=== PATIENT | male | born 1980 | race Hispanic/Latino ===

== ENCOUNTER 2022-09-07 06:25 | Observation (INO) | payer OTHER, SELFPAY ==
[2022-09-07] MEDS ORDERED: KETOROLAC 30 MG/ML INJ ONE (06:56)
[2022-09-07] MEDS ORDERED: NA CHLORIDE 0.9% 500 ML ONE (06:56)
[2022-09-07 07:11] LABS: Absolute Lymphocytes (CBC) 1.2 K/uL (0.7-4.9); Lymphocytes % 11.6 % (15.3-44.8); MCV 85.8 fL (80-100); MPV 9.1 fL (7.6-11.3); RBC Red Blood Cell Count 5.01 M/uL (4.33-5.43)
[2022-09-07 07:22] LABS: Albumin 3.9 g/dL (3.4-5.0); Bilirubin Total 0.3 mg/dL (0.2-1.0); Protein, Total 7.4 g/dL (6.4-8.2)
--- NOTE | 2022-09-07 07:49 | RAD REPORT ---
EXAM DESCRIPTION: CT - Stone Protocol - 09/07/2022 7:22 am CLINICAL HISTORY: Abdominal pain. COMPARISON: None. TECHNIQUE: Computed axial tomography of the abdomen pelvis was obtained without oral or IV contrast. Lack of IV and oral contrast limits evaluation of solid organs, appendix, bowel, and vessels. Terry l reformatted images were obtained and reviewed. All CT scans are performed using dose optimization technique as appropriate and may include automated exposure control or mA/KV adjustment according to patient size. FINDINGS: Bilateral renal calculi. 9 millimeter calculus proximal right ureter. Moderate right hydro nephrosis. No left hydronephrosis without With fatty liver. The spleen, adrenals and pancreas appear grossly normal. There is no evidence of diverticulitis. The appendix appears normal Small umbilical hernia IMPRESSION: 9 millimeter calculus proximal right ureter resulting in moderate right hydronephrosis
[2022-09-07] MEDS ORDERED: MORPHINE 4 MG/ML SYR ONE ×2 (09:08→13:45)
[2022-09-07] MEDS ORDERED: TAMSULOSIN 0.4 MG SR CAP ONE (09:09)
[2022-09-07] MEDS ORDERED: MAGNESIUM SULFATE 1 gm IVPB 1 GM/100 ML BAG IV ONE (09:09)
[2022-09-07 10:32] LABS: Urine Blood 3+ (Negative); Urine Glucose Trace (Negative); Urine Protein Negative (Negative); Urine Specific Gravity 1.025 (1.005-1.030); Urine pH 6.5 (5.0-7.0)
--- NOTE | 2022-09-07 11:36 | EDPHYS ---
Physician Documentation [facility] Name: Durga Gastelum Age: 41 yrs Sex: Male : 1980 Arrival Date: 09/07/2022 Time: 06:26 Bed 17 Private MD: ED Physician Javier Saunders HPI: 09/07 06:51 This 41 yrs old Male presents to ER via Unassigned with complaints of Back kdr Pain. 06:52 Patient complains of right flank pain that began about 3 AM this morning. He was kdr sleeping at the time. He has not had pain like this before. He has had some nausea but no vomiting. He is otherwise healthy. Onset: The symptoms/episode began/occurred suddenly. Severity of symptoms: At their worst the symptoms were severe incapacitating just prior to arrival, in the emergency department the symptoms are unchanged. The patient has not experienced similar symptoms in the past. The patient has not recently seen a physician. Historical: - Allergies: 06:52 No Known Allergies; aa9 - Home Meds: 06:52 None [Active]; aa9 - PMHx: 06:52 None; aa9 - PSHx: 06:52 None; aa9 - Immunization history:: Client reports receiving the 2nd dose of the Covid vaccine. - Social history:: Smoking status: Patient denies any tobacco usage or history of. ROS: 06:52 Constitutional: Negative for fever, chills, and weight loss, Eyes: Negative for injury, kdr pain, redness, and discharge, ENT: Negative for injury, pain, and discharge, Neck: Negative for injury, pain, and swelling, Cardiovascular: Negative for chest pain, palpitations, and edema, Respiratory: Negative for shortness of breath, cough, wheezing, and pleuritic chest pain, Back: Negative for injury and pain, : Negative for injury, bleeding, discharge, and swelling, MS/Extremity: Negative for injury and deformity, Skin: Negative for injury, rash, and discoloration, Neuro: Negative for headache, weakness, numbness, tingling, and seizure activity. Psych: Negative for depression, anxiety, suicide ideation, homicidal ideation, and hallucinations, Allergy/Immunology: Negative for hives, rash, and allergies, Endocrine: Negative for neck swelling, polydipsia, polyuria, polyphagia, and marked weight changes, Hematologic/Lymphatic: Negative for swollen nodes, abnormal bleeding, and unusual bruising. 06:52 Abdomen/GI: Positive for abdominal pain, nausea, Negative for vomiting, constipation, abdominal cramps, abdominal distension, black/tarry stool, rectal pain, rectal bleeding, bowel incontinence. Exam: 06:52 Constitutional: This is a well developed, well nourished patient who is awake, alert, kdr and in no acute distress. Head/Face: Normocephalic, atraumatic. Eyes: Pupils equal round and reactive to light, extra-ocular motions intact. Lids and lashes normal. Conjunctiva and sclera are non-icteric and not injected. Cornea within normal limits. Periorbital areas with no swelling, redness, or edema. Neck: Trachea midline, no thyromegaly or masses palpated, and no cervical lymphadenopathy. Supple, full range of motion without nuchal rigidity, or vertebral point tenderness. No Meningismus. Chest/axilla: Normal chest wall appearance and motion. Nontender with no deformity. No lesions are appreciated. Cardiovascular: Regular rate and rhythm with a normal S1 and S2. No gallops, murmurs, or rubs. Normal PMI, no JVD. No pulse deficits. Respiratory: Lungs have equal breath sounds bilaterally, clear to auscultation and percussion. No rales, rhonchi or wheezes noted. No increased work of breathing, no retractions or nasal flaring. Skin: Warm, dry with normal turgor. Normal color with no rashes, no lesions, and no evidence of cellulitis. MS/ Extremity: Pulses equal, no cyanosis. Neurovascular intact. Full, normal range of motion. Neuro: Awake and alert, GCS 15, oriented to person, place, time, and situation. Cranial nerves II-XII grossly intact. Motor strength 5/5 in all extremities. Sensory grossly intact. Cerebellar exam normal. Normal gait. Psych: Awake, alert, with orientation to person, place and time. Behavior, mood, and affect are within normal limits. 06:52 Abdomen/GI: Soft, non-tender, with normal bowel sounds. No distension or tympany. No guarding or rebound. No evidence of tenderness throughout. 06:52 Back: pain, that is moderate, that is severe, of the right mid back and right low back, ROM is normal, normal spinal alignment noted, CVA tenderness, that is moderate, is noted on the right. Vital Signs: 06:51 BP 155 / 92; Pulse 69; Resp 18 S; Pulse Ox 100% on R/A; Weight 81.65 kg (R); Height 5 aa9 ft. 5 in. (165.10 cm) (R); Pain 10/10; 07:12 BP 146 / 84; Pulse 70; Resp 16 S; Pulse Ox 97% on R/A; kc6 09:26 BP 137 / 80; Pulse 71; Resp 18 S; Temp 98.2(O); Pulse Ox 99% on R/A; kc6 10:19 BP 128 / 85; Pulse 64; Resp 18 S; Pulse Ox 96% on R/A; kc6 11:08 BP 134 / 89; Pulse 68; Resp 16 S; Pulse Ox 99% on R/A; kc6 12:24 BP 127 / 84; Pulse 74; Resp 18 S; Pulse Ox 99% on R/A; Pain 0/10; kc6 14:28 BP 126 / 79; Pulse 69; Resp 17 S; Pulse Ox 96% on R/A; kc6 15:59 BP 105 / 67; Pulse 100; Resp 18 S; Pulse Ox 97% on R/A; kc6 06:51 Body Mass Index 29.95 (81.65 kg, 165.10 cm) aa9 MDM: 06:52 Data reviewed: vital signs, nurses notes, lab test result(s), radiologic studies. kdr Counseling: I had a detailed discussion with the patient and/or guardian regarding: the historical points, exam findings, and any diagnostic results supporting the discharge/admit diagnosis, lab results, radiology results. 07:04 Patient medically screened. rn 11:32 Differential Diagnosis kidney stone, obstruction, hydro, UTI. Response to treatment: rn There is no appreciated change of the patient's symptoms at this time, and as a result, I will admit patient. Admission orders: after a detailed discussion of the patient's condition and case, the admit orders are written by me. ED course: Pt still with pain, morphine only helps temporarily, will consult with Dr. Johnson and admit.. 11:35 ED course: Called Dr. Johnson, no answer, will try again. . rn 09/07 06:50 Order name: CBC with Diff; Complete Time: 07:22 kdr 09/07 06:50 Order name: CMP; Complete Time: 07:22 kdr 09/07 10:32 Order name: Urine Dipstick-Ancillary; Complete Time: 11:30 EDMS 09/07 12:13 Order name: SARS RAPID jl7 09/07 13:49 Order name: Basic Metabolic Panel EDMS 09/07 13:49 Order name: Basic Metabolic Panel EDMS 09/07 13:49 Order name: CBC with Automated Diff EDMS 09/07 13:49 Order name: CBC with Automated Diff EDMS 09/07 13:49 Order name: Magnesium EDMS 09/07 13:49 Order name: Magnesium EDMS 09/07 13:49 Order name: Phosphorus EDMS 09/07 13:49 Order name: Phosphorus EDMS 09/07 13:49 Order name: Protime (+INR) EDMS 09/07 13:49 Order name: Protime (+INR) EDMS 09/07 06:50 Order name: IV Saline Lock; Complete Time: 06:54 kdr 09/07 06:50 Order name: Labs collected and sent; Complete Time: 06:54 kdr 09/07 06:50 Order name: Urine Dipstick-Ancillary (obtain specimen); Complete Time: 10:31 kdr 09/07 06:50 Order name: CT Stone Protocol; Complete Time: 07:53 kdr 09/07 13:49 Order name: CONS Physician Consult EDMS 09/07 13:49 Order name: NPO EDMS 09/07 13:49 Order name: Regular EDMS Administered Medications: 07:03 Drug: Ketorolac 15 mg Route: IVP; Site: right antecubital; kd3 08:03 Follow up: Response: No adverse reaction; Pain is decreased; RASS: Alert and Calm (0) kc6 07:03 Drug: NS 0.9% 500 ml Route: IV; Rate: bolus; Site: right antecubital; kd3 08:04 Follow up: Response: No adverse reaction; IV Status: Completed infusion; IV Intake: kc6 500ml 09:24 Drug: morphine 4 mg Route: IVP; Infused Over: 4 mins; Site: right antecubital; kc6 10:32 Follow up: Response: No adverse reaction; Pain is decreased; RASS: Alert and Calm (0) kc6 09:24 Drug: Magnesium Sulfate 1 grams Route: IVPB; Infused Over: 1 hrs; Site: right kc6 antecubital; 10:31 Follow up: Response: No adverse reaction; IV Status: Completed infusion; IV Intake: kc6 100ml 09:25 Drug: Flomax (tamsulosin) 0.4 mg Route: PO; kc6 10:32 Follow up: Response: No adverse reaction kc6 13:50 Drug: morphine 4 mg Route: IVP; Infused Over: 4 mins; Site: right antecubital; kc6 14:29 Follow up: Response: No adverse reaction; Pain is decreased; RASS: Alert and Calm (0) kc6 Disposition Summary: 09/07/22 11:36 Hospitalization Ordered Hospitalization Status: Observation rn Provider: Telly Esquivel rn Location: Telemetry/MedSur (observation) rn Condition: Stable rn Problem: new rn Symptoms: are unchanged rn Bed/Room Type: Standard rn Room Assignment: [facility](09/07/22 15:20) Diagnosis - Hydronephrosis with renal and ureteral calculous obstruction rn - Intractable pain criminal attorney Instructions: - Discharge Summary Sheet em1 Forms: - Medication Reconciliation Form rn - SBAR form rn - Family Work Release em1 Signatures: Dispatcher [employer] Kacey Mar RN RN dw Barney Latif MD MD kdr Nieto, Roman, MD MD rn Doucette, Kyli, RN TARIK kd3 Radha Khoury RN RN aa9 Ludivina Antonio, RN RN kc6 Corrections: (The following items were deleted from the chart) 15:20 11:36 rn [email or web address]
--- NOTE | 2022-09-07 11:36 | ER ---
Nurse's Notes [facility] Name: Durga Gastelum Age: 41 yrs Sex: Male : 1980 Arrival Date: 09/07/2022 Time: 06:26 Bed 17 Private MD: Diagnosis: Hydronephrosis with renal and ureteral calculous obstruction;Intractable pain Presentation: 09/07 06:51 Chief complaint: Patient states: I have right lower back pain since I woke up, i did aa9 vomit once form the pain, I have never had this pain before. Coronavirus screen: Vaccine status: Patient reports receiving the 2nd dose of the covid vaccine. Ebola Screen: No symptoms or risks identified at this time. Initial Sepsis Screen: Does the patient meet any 2 criteria? No. Patient's initial sepsis screen is negative. Does the patient have a suspected source of infection? No. Patient's initial sepsis screen is negative. Risk Assessment: Do you want to hurt yourself or someone else? Patient reports no desire to harm self or others. Onset of symptoms was September 07, 2022. 06:51 Method Of Arrival: Ambulatory aa9 06:51 Acuity: JOVANNY 3 aa9 Triage Assessment: 06:52 General: Appears distressed, uncomfortable, Behavior is cooperative, crying. Pain: aa9 Complains of pain in back and posterior aspect of right lateral abdomen Pain currently is 10 out of 10 on a pain scale. Noted to be crying, grimacing, guarding, moaning, Also complains of no other associated symptoms. Neuro: Level of Consciousness is awake, alert, obeys commands, Oriented to person, place, time, situation. Cardiovascular: Denies chest pain, shortness of breath, Patient's skin is warm and dry. Rhythm is regular. Respiratory: Airway is patent Respiratory effort is even, unlabored. GI: Abdomen is flat, Patient currently denies diarrhea. : No signs and/or symptoms were reported regarding the genitourinary system. Denies burning with urination. Derm: No signs and/or symptoms reported regarding the dermatologic system. Historical: - Allergies: 06:52 No Known Allergies; aa9 - Home Meds: 06:52 None [Active]; aa9 - PMHx: 06:52 None; aa9 - PSHx: 06:52 None; aa9 - Immunization history:: Client reports receiving the 2nd dose of the Covid vaccine. - Social history:: Smoking status: Patient denies any tobacco usage or history of. Screenin:54 Abuse screen: Denies threats or abuse. Denies injuries from another. Nutritional aa9 screening: No deficits noted. Tuberculosis screening: No symptoms or risk factors identified. Fall Risk None identified. Assessment: 07:30 Reassessment: Patient appears in no apparent distress at this time. Patient and/or jd3 family updated on plan of care and expected duration. Pain level reassessed. Patient is alert, oriented x 3, equal unlabored respirations, skin warm/dry/pink. resting in bed with eyes closed. family at bedside. 07:30 General: Appears in no apparent distress. comfortable, Behavior is calm, cooperative, jd3 appropriate for age. Pain: Complains of pain in right low back Quality of pain is described as sharp. Neuro: Yates Agitation-Sedation Scale (RASS): 0 - Alert and Calm Level of Consciousness is awake, alert, obeys commands, Oriented to person, place, time, situation. Cardiovascular: Capillary refill < 3 seconds Patient's skin is warm and dry. Respiratory: Airway is patent Respiratory effort is even, unlabored, Respiratory pattern is regular, symmetrical, Denies cough, shortness of breath. GI: Reports lower abdominal pain. : No signs and/or symptoms were reported regarding the genitourinary system. EENT: No signs and/or symptoms were reported regarding the EENT system. Derm: Skin is intact, Skin is dry, Skin is normal, Skin temperature is warm. Musculoskeletal: No signs and/or symptoms reported regarding the musculoskeletal system. 08:30 Reassessment: No changes from previously documented assessment. Patient and/or family jd3 updated on plan of care and expected duration. Pain level reassessed. Patient is alert, oriented x 3, equal unlabored respirations, skin warm/dry/pink. 09:25 Reassessment: Patient appears in no apparent distress at this time. No changes from kc6 previously documented assessment. Patient and/or family updated on plan of care and expected duration. Pain level reassessed. Patient is alert, oriented x 3, equal unlabored respirations, skin warm/dry/pink. 10:18 Reassessment: Patient appears in no apparent distress at this time. No changes from kc6 previously documented assessment. Patient and/or family updated on plan of care and expected duration. Pain level reassessed. Patient is alert, oriented x 3, equal unlabored respirations, skin warm/dry/pink. 11:09 Reassessment: Patient appears in no apparent distress at this time. No changes from kc6 previously documented assessment. Patient and/or family updated on plan of care and expected duration. Pain level reassessed. Patient is alert, oriented x 3, equal unlabored respirations, skin warm/dry/pink. 12:24 Reassessment: Patient appears in no apparent distress at this time. No changes from kc6 previously documented assessment. Patient and/or family updated on plan of care and expected duration. Pain level reassessed. Patient is alert, oriented x 3, equal unlabored respirations, skin warm/dry/pink. 13:24 Reassessment: Patient appears in no apparent distress at this time. No changes from kc6 previously documented assessment. Patient and/or family updated on plan of care and expected duration. Pain level reassessed. Patient is alert, oriented x 3, equal unlabored respirations, skin warm/dry/pink. 14:24 Reassessment: Patient appears in no apparent distress at this time. No changes from kc6 previously documented assessment. Patient and/or family updated on plan of care and expected duration. Pain level reassessed. Patient is alert, oriented x 3, equal unlabored respirations, skin warm/dry/pink. 15:24 Reassessment: Patient appears in no apparent distress at this time. No changes from kc6 previously documented assessment. Patient and/or family updated on plan of care and expected duration. Pain level reassessed. Patient is alert, oriented x 3, equal unlabored respirations, skin warm/dry/pink. Vital Signs: 06:51 BP 155 / 92; Pulse 69; Resp 18 S; Pulse Ox 100% on R/A; Weight 81.65 kg (R); Height 5 aa9 ft. 5 in. (165.10 cm) (R); Pain 10/10; 07:12 BP 146 / 84; Pulse 70; Resp 16 S; Pulse Ox 97% on R/A; kc6 09:26 BP 137 / 80; Pulse 71; Resp 18 S; Temp 98.2(O); Pulse Ox 99% on R/A; kc6 10:19 BP 128 / 85; Pulse 64; Resp 18 S; Pulse Ox 96% on R/A; kc6 11:08 BP 134 / 89; Pulse 68; Resp 16 S; Pulse Ox 99% on R/A; kc6 12:24 BP 127 / 84; Pulse 74; Resp 18 S; Pulse Ox 99% on R/A; Pain 0/10; kc6 14:28 BP 126 / 79; Pulse 69; Resp 17 S; Pulse Ox 96% on R/A; kc6 15:59 BP 105 / 67; Pulse 100; Resp 18 S; Pulse Ox 97% on R/A; kc6 06:51 Body Mass Index 29.95 (81.65 kg, 165.10 cm) aa9 ED Course: 06:26 Patient arrived in ED. ja2 06:42 Barney Latif MD is Attending Physician. kdr 06:52 Triage completed. aa9 06:53 Fanny Nuno RN is Primary Nurse. kd3 06:54 Arm band placed on. aa9 07:04 Attending Physician role handed off by Barney Latif MD rn 07:04 Javier Saunders MD is Attending Physician. rn 07:23 CT Stone Protocol In Process Unspecified. EDMS 09:20 Patient has correct armband on for positive identification. Bed in low position. Call jd3 light in reach. Side rails up X 1. Pulse ox on. NIBP on. 11:35 Telly Esquivel MD is Hospitalizing Provider. rn 12:22 SARS RAPID Sent. kc6 16:00 No provider procedures requiring assistance completed. Patient admitted, IV remains in kc6 place. Administered Medications: 07:03 Drug: Ketorolac 15 mg Route: IVP; Site: right antecubital; kd3 08:03 Follow up: Response: No adverse reaction; Pain is decreased; RASS: Alert and Calm (0) kc6 07:03 Drug: NS 0.9% 500 ml Route: IV; Rate: bolus; Site: right antecubital; kd3 08:04 Follow up: Response: No adverse reaction; IV Status: Completed infusion; IV Intake: kc6 500ml 09:24 Drug: morphine 4 mg Route: IVP; Infused Over: 4 mins; Site: right antecubital; kc6 10:32 Follow up: Response: No adverse reaction; Pain is decreased; RASS: Alert and Calm (0) kc6 09:24 Drug: Magnesium Sulfate 1 grams Route: IVPB; Infused Over: 1 hrs; Site: right kc6 antecubital; 10:31 Follow up: Response: No adverse reaction; IV Status: Completed infusion; IV Intake: kc6 100ml 09:25 Drug: Flomax (tamsulosin) 0.4 mg Route: PO; kc6 10:32 Follow up: Response: No adverse reaction kc6 13:50 Drug: morphine 4 mg Route: IVP; Infused Over: 4 mins; Site: right antecubital; kc6 14:29 Follow up: Response: No adverse reaction; Pain is decreased; RASS: Alert and Calm (0) kc6 Medication: 07:30 VIS not applicable for this client. jd3 Intake: 08:04 IV: 500ml; Total: 500ml. kc6 10:31 IV: 100ml; Total: 600ml. kc6 Outcome: 11:36 Decision to Hospitalize by Provider. rn 16:00 Admitted to Med/surg accompanied by tech, via wheelchair, room 208, with chart, Report kc6 called to Cora Kilgore RN 16:00 Condition: stable 16:00 Instructed on the need for admit. 16:14 Patient left the ED. jd3 Signatures: Dispatcher [employer] Barney Alba MD MD kdr Nieto, Roman, MD MD rn Davies, Jonathon, RN RN jd3 Kelsey Mckeon Kyli, RN RN kd3 Radha Khoury RN RN Ludivina Schilling RN RN kc6
[2022-09-07 12:42] LABS: SARS-CoV-2 Antigen Rapid Res Negative (Negative)
--- NOTE | 2022-09-07 13:46 | P.HP ---
Certification for Inpatient Patient admitted to: Observation With expected LOS: <2 Midnights Patient will require the following post-hospital care: None Practitioner: I am a practitioner with admitting privileges, knowledge of patient current condition, hospital course, and medical plan of care. Services: Services provided to patient in accordance with Admission requirements found in Title 42 Section 412.3 of the Code of Federal Regulations Patient History Date of Service: 09/07/22 Reason for admission: Hydronephrosis History of Present Illness: Mr. Durga Gastelum is Jamaican-speaking only. The following history was obtained with the assistance of [employer] certified Jamaican-Turkmen sales project engineer, Ms. Constance Larsen, (ID# [id number]). Mr. Durga Gastelum is a pleasant 41 year old male who has no reported past medical history who presents to the [facility] Emergency Department for right flank pain. He reports that, around 03:00 AM this morning, he awoke with rightsided flank pain. He states that the pain is constant and has been progressively worsening. He describes the pain as sharp and grades it a 7-8/10 in severity. He states that the pain is worse with any type of movement. He denies any alleviating factors. He denies any radiation of his pain. He states that his pain has been associated with dysuria. He has not tried taking any medication at home for his symptoms. On review of systems, he denies any fevers, chills, headaches, dizziness, syncope, weakness, chest pain, palpitations, shortness of breath, wh eezing, cough, abdominal pain, nausea/vomiting, diarrhea, constipation, hematochezia, melena, hematuria, myalgia, or any other symptoms. He presented to the Emergency Department for further evaluation. Upon presentation, his vital signs were stable. His laboratory studies were notable for a glucose of 197. His urinalysis was notable for 3+ blood. CT abdomen/pelvis revealed, "9 millimeter calculus proximal right ureter resulting in moderate right hydronephrosis." In the Emergency Department, he was given ketorolac, morphine, magnesium sulfate, and 500 mL of normal saline. He was admitted to the General Internal Medicine service for further evaluation. Allergies No Known Allergies Allergy (Unverified 09/07/22 14:03) Home medications list reviewed: Yes Home Medications: NK [No Home Meds] 09/07/22 - Past Medical/Surgical History Past Medical History: Patient denies medical history Past Surgical History: Patient denies surgical history - Family History Family History: Reviewed- Non-Contributory - Social History Smoking Status: Never smoker Alcohol use: No CD- Drugs: No Review of Systems General: Unremarkable Eyes: Unremarkable ENT: Unremarkable Respiratory: Unremarkable Cardiovascular: Unremarkable Gastrointestinal: Unremarkable Genitourinary: Dysuria Musculoskeletal: Back Pain (right flank) Integumentary: Unremarkable Neurological: Unremarkable Lymphatics: Unremarkable Physical Examination - Vital Signs Temperature: 98.2 F Blood Pressure: 127/84 Pulse: 74 Respirations: 18 Pulse Ox (%): 99 - Physical Exam General: Alert, Oriented x3, Mild distress HEENT: Atraumatic, PERRLA, Mucous membr. moist/pink, EOMI, Sclerae nonicteric Neck: Supple Respiratory: Clear to auscultation bilaterally, Normal air movement Cardiovascular: No edema, Regular rate/rhythm, Normal S1 S2, No gallops, No rubs, No murmurs Capillary refill: <2 Seconds Gastrointestinal: Normal bowel sounds, Soft and benign, Non-distended, No tenderness, No rebound, No guarding Musculoskeletal: Other (right CVA tenderness. No left CVA tenderness.) Integumentary: No rashes Neurological: Normal speech, Cranial nerves 3-12 intact, Normal affect - Studies Laboratory Data (last 24 hrs) 09/07/22 06:58: Sodium 140, Potassium 4.0, BUN 17, Creatinine 1.18, Glucose 197 H, Total Bilirubin 0.3, AST 30, ALT 72, Alkaline Phosphatase 93 09/07/22 06:58: WBC 10.70, Hgb 14.9, Hct 43.0, Plt Count 193 Assessment and Plan - Plan # Moderate Right Hydronephrosis secondary to Proximal Right Ureter Calculus (9 mm) - Consulted Urology and spoke with Dr. Johnson - recommendations appreciated - Recommended NPO past midnight for possible cystoscopy and stone removal tomorrow - Urinalysis = 3+ blood - CT abdomen/pelvis = "9 millimeter calculus proximal right ureter resulting in moderate right hydronephrosis" - Started tamsulosin - PRN acetaminophen, ketorolac, morphine for pain - Strain all urine Telly Esquivel M.D. Discharge Plan: Home Plan to discharge in: 24 Hours - Advance Directives Does patient have a Living Will: No Does patient have a Durable POA for Healthcare: No - Code Status/Comfort Care Code Status Assessed: Yes Code Status: Full Code
[2022-09-07 17:14] VITALS: BMI 27.6
[2022-09-07] MEDS ORDERED: MORPHINE 2 MG/ML SYR IV PRN (17:17)
[2022-09-07] MEDS ORDERED: KETOROLAC 30 MG/ML INJ IV PRN (17:17)
[2022-09-07] MEDS ORDERED: ACETAMINOPHEN 325 MG TABLET PO PRN (17:17)
[2022-09-07] MEDS ORDERED: TAMSULOSIN 0.4 MG SR CAP PO SCH (21:00)
[2022-09-08 05:47] LABS: Absolute Lymphocytes (CBC) 2.1 K/uL (0.7-4.9); MCV 86.1 fL (80-100); RBC Red Blood Cell Count 4.64 M/uL (4.33-5.43)
[2022-09-08 05:58] LABS: Magnesium 2.1 mg/dL (1.8-2.4); Phosphorus 3.2 mg/dL (2.5-4.9); Potassium 3.8 mmol/L (3.5-5.1)
[2022-09-08 07:47] LABS: Protime INR 1.05
[2022-09-08] MEDS ORDERED: Ringers Lactate 1,000 ML IV SCH (08:00)
[2022-09-08] MEDS ORDERED: CEFTRIAXONE 1000 MG/VIAL ONE (11:10)
[2022-09-08] MEDS ORDERED: MIDAZOLAM HCL 2 MG/2 ML INJ ONE (11:41)
[2022-09-08] MEDS ORDERED: FENTANYL CITR 100 MCG/2 ML ONE (11:41)
[2022-09-08] MEDS ORDERED: ONDANSETRON 4 MG/2 ML VIAL ONE (11:41)
[2022-09-08] MEDS ORDERED: propofoL 200 MG/20 ML VIAL IV ONE (11:41)
[2022-09-08] MEDS ORDERED: LIDOCAINE 1% MPF 5 ML VIAL ONE (11:41)
[2022-09-08] MEDS ORDERED: ROCURONIUM 50 MG/5 ML VIAL IV ONE (11:41)
[2022-09-08] MEDS ORDERED: NEOSTIGMINE 1 MG/ML -5 ML ONE (12:44)
[2022-09-08] MEDS ORDERED: GLYCOPYRROLATE 0.2 MG/ML SYR ONE (12:44)
--- NOTE | 2022-09-08 13:05 | RAD REPORT ---
EXAM DESCRIPTION: RAD - Urethrocystogrphy Retrograde - 09/08/2022 12:59 pm CLINICAL HISTORY: RIGHT STENT COMPARISON: No comparisons FINDINGS: Total fluoro time: 0.11 minutes
[2022-09-08] MEDS ORDERED: MEPERIDINE HCL 25 MG/ML SYR ONE (13:31)
[2022-09-08 13:34] VITALS: O2SAT 97
[2022-09-08] MEDS ORDERED: CODEINE 30MG/APAP 300MG TAB PO PRN (13:37)
[2022-09-08] MEDS ORDERED: PHENAZOPYRIDINE 100MG TAB PO ONE (14:00)
--- NOTE | 2022-09-08 15:20 | CON ---
Reason For Consultation: Obstructive ureterolithiasis. History Of Present Illness: Mr. Gastelum is a 41-year-old Wolof-speaking gentleman, who presented via the emergency department with complaints of right flank pain. The pain was severe in nature, but it was not associated with any nausea or vomiting, and he had no fever or chills. In addition to the pain, he notes that this morning he was having a degree of dysuria. The pain began early yesterday morning and was constant and progressively worsening. As of my visit with him this morning, the pain had significantly improved. Past Medical History: Negative. Past Surgical History: None. Allergies: NO KNOWN DRUG ALLERGIES. Physical Examination: The patient is well-appearing and in no acute distress, he was alert, awake, oriented x3. There was no dyspnea or sign of respiratory distress or use of secondary muscles to breathe. There was no cervical or supraclavicular adenopathy or thyromegaly noted. His abdomen was soft, minimally tender in the right mid quadrant. Genitalia was circumcised with an orthotopic meatus, patent without discharge. No glandar lesions were noted. The testes were bilaterally descended without mass and nontender. The scrotum was normal. He was lying in a stretcher, but able to move easily with requests for the examination. Laboratory Analysis: Creatinine 1.18 and urinalysis 3+ heme with no nitrites or leukocyte esterase. Review of the CT of the abdomen and pelvis performed revealed right-sided hydronephrosis associated with an 8 to 9 mm proximal ureteral calculus. No other pathologic findings of note were observed in the abdomen or pelvis. Assessment And Recommendations: Mr. Gastelum is a 41-year-old gentleman with no significant past medical or surgical history, who presents as a first-time stone former with an 8 to 9 mm proximal right ureterolithiasis causing flank pain and hydronephrosis. -I counseled the patient with use of a sales utility representative for 8 minutes and 32 seconds explaining that he had less than a 10% likelihood of successful spontaneous passage of the stone. I explained the potential that the stone could be impacted, which could result in difficulty in placement of the ureteral stent, which was recommended today. I did discuss the potential for performing definitive ureteroscopic management with laser lithotripsy, but I explained that that may not be possible today. I further explained that if a stent is successfully placed, but laser lithotripsy is not performed, he will need to return for definitive management of the stone at minimum within 6 months to prevent complications from prolonged stenting. I explained that the stent is a foreign body that must be removed within 6 months maximum. Risks of the cystoscopy and stenting were discussed to include injury to urethra/stricture or infection. The potential need for percutaneous nephrostomy tube placement was also discussed to occur in about 5% of cases depending on how impacted the stone is. Other risks of ureteral stricture were also discussed as well as the risk of infection/sepsis if ureteroscopy was performed. The patient consented to the procedure accordingly and will be planned today for a cystoscopy and right ureteral stent placement with possible ureteroscopy with laser lithotripsy. KINZA/MAKENZIE Voice ID: [id number] Report ID: [id number] TAMMY
[2022-09-08 17:34] VITALS: BP 112/62; TEMP 98.4
--- NOTE | 2022-09-08 18:17 | OP ---
Surgeon: RIRI SCHOFIELD Preoperative Diagnoses: 1.Right obstructive ureterolithiasis. 2.Right flank pain. 3.Right hydronephrosis. Postoperative Diagnoses: 1.Right obstructive ureterolithiasis. 2.Right flank pain. 3.Right hydronephrosis. 4.Urethral stricture disease. Principal Procedures: 1.Cystoscopy. 2.Urethral dilation using sounds. 3.Right retrograde pyelography. 4.Right ureteroscopy with laser lithotripsy. 5.Right ureteral stent placement. Indication For Procedure: Mr. Gastelum is a 41-year-old gentleman, first-time stone former, who prese nted via the Emergency Department with right flank pain, found to be secondary to an 8-9 mm proximal ureteral obstructing calculus. I saw him and counseled him on the potential for surgical interventio n to include ureteroscopy with laser lithotripsy, but recommended at minimum a ureteral stent be plac ed given the less than 10% likelihood of successful spontaneous passage. He consented and agreed. Procedure In Detail: The patient was consented in the preoperative holding area before being transfe rred to operative suite where general anesthesia was induced. He had been given ceftriaxone 1 g IV a ntimicrobial prophylaxis about 1 hour and 15 minutes prior to incision. His genitalia were prepped u sing Hibiclens after he was placed in the lithotomy position, padded and secured to the table appropr iately. The case was begun using a 22-Egyptian rigid cystoscope to traverse the urethra until a bulbar urethral stricture was encountered that prohibited passage by the 22-Egyptian rigid scope. As a resul t, I employed urethral sounds to dilate all the way into his bladder from 22-Egyptian to 28-Egyptian succ essfully. I then was able to pass the 22-Egyptian cystoscope via the urethra all the way into his blad nica, which was decompressed of fluid and urine. I then visualized the trigone and the right ureteral orifice, which was then cannulated using the tip of a 5-Egyptian ureteral access catheter. A retrogra de pyelogram was then performed. Right retrograde pyelography: Using a 70:30 mixture of Omnipaque and saline, contrast was injected v ia the 5-Egyptian ureteral access catheter and did propagate up a mildly dilated ureter before encounte ring a radiopaque calculus in the proximal ureter just distal to the UPJ. The contrast was able to s urpass the calculus and enter a dilated renal pelvis. So I utilized a Sensor wire to navigate beyond the stone and coiled the wire within the upper pole of the kidney. Over this Sensor wire, I passed a dual-lumen catheter all the way into the proximal ureter just to the base of the stone and allow th e ureter to be dilated. I confirmed appropriate positioning of the ureteral access sheath by again i njecting contrast via the second lumen of the dual-lumen catheter. I then removed the dual-lumen cat heter and was able to navigate the semi-rigid ureteroscope via the urethra up the distal into the mid and proximal ureter until the stone was encountered. Then, utilizing a 200 nanometer laser fiber an d power setting of 0.6-0.8 joules and 12 hertz, I was able to quickly fragment the stone to dust just about the size of the laser fiber or about 200-400 nanometers maximum. I then surveyed beyond the p oint of stone impaction in the ureter to confirm all fragments had been successfully disrupted and we re smaller than a mm. I then retracted the ureteroscope and surveyed the entirety of the ureter from proximal down through the mid and distal ureter to ensure absence of injury or any significantly siz ed stones. When neither was noted, the scope was removed from his urinary system. I then back-loade d the cystoscope over the safety wire and passed a 6-Egyptian x 24 cm double-J right ureteral stent wit h a coil observed fluoroscopically within the renal pelvis and one cystoscopically formed in his blad nica. I then decompressed his bladder of fluid and urine and some stone dust. Attempts to take some of that stone dust and sent it for chemical analysis was performed. The patient was then taken out o f the lithotomy position, awakened from general anesthesia, transferred to a stretcher, and then hernandez sferred to the recovery room in good condition. Complications: None. Discharge Disposition: He should follow up in the Urology Clinic within 2-3 weeks for cystoscopy and stent removal. I counseled the patient extensively preoperatively on the fact that this is a foreig n body that requires removal within 6 months maximum to prevent complication or injury. Since he is a Divehi-speaking gentleman, this counseling was performed using the asl interpreter. This will be reinforced along with his discharge instructions and my office number will be provided. KINZA/MAKENZIE Voice ID: [id number] Report ID: [id number]
--- NOTE | 2022-09-08 18:55 | P.DS ---
Admission Date: 09/07/22 Discharge Date: 09/08/22 Discharge Condition: GOOD Reason for Admission: Hydronephrosis Consultations: 1. Urology Procedures: - 09/08/2022: - Cystoscopy. - Urethral dilation using sounds. - Right retrograde pyelography. - Right ureteroscopy with laser lithotripsy. - Right ureteral stent placement. Hospital Course: DIAGNOSES: # Moderate Right Hydronephrosis secondary to Proximal Right Ureter Calculus (9 mm) s/p Cystoscopy with Right Ureteral Stent Placement (09/08/2022) HOSPITAL COURSE: Mr. Durga Gastelum is Belizean-speaking only. The following history was obtained with the assistance of [employer] certified [place]an-Monegasque map compiler, Mr. Mccollum, (ID# [id number]). Mr. Durga Gastelum is a pleasant 41 year old male who has no reported past medical history who was admitted to the [facility] on 09/07/2022 for right flank pain. He was admitted to the Medicine service. His urinalysis revealed 3+ blood. CT abdomen/pelvis revealed, ""9 millimeter calculus proximal right ureter resulting in moderate right hydronephrosis." Urology was consulted and he was evaluated by Dr. Johnson. Today, Dr. Johnson performed a cystoscopy, right retrograde pyelography, right ureteroscopy with laser lithotripsy, and right ureteral stent placement. He was monitored post-operatively and did well. Dr. Johnson has cleared him for discharge with outpatient follow-up. On 09/08/2022, he was seen on rounds and deemed medically stable for discharge. He was discharged with instructions to schedule a follow-up appointment with Urology (Dr. Johnson) for stent removal in 2-[address] Johnson provided him a prescription for Tylenol # 3. He and his were given the opportunity to ask questions and reported no further questions. Furthermore, all questions were answered to the best of my ability. A copy of this discharge summary will be sent to the above providers to facilitate continuity of care. Today, I personally spent 20 minutes on his case, of which greater than 50% of the time was spent in patient education, counseling, and coordination of care as described above. - Physical Exam General: Alert, Oriented x3, Mild distress HEENT: Atraumatic, PERRLA, Mucous membr. moist/pink, EOMI, Sclerae nonicteric Neck: Supple Respiratory: Clear to auscultation bilaterally, Normal air movement Cardiovascular: No edema, Regular rate/rhythm, Normal S1 S2, No gallops, No rubs, No murmurs Capillary refill: <2 Seconds Gastrointestinal: Normal bowel sounds, Soft and benign, Non-distended, No tenderness, No rebound, No guarding Musculoskeletal: Other (right CVA tenderness. No left CVA tenderness.) Integumentary: No rashes Neurological: Normal speech, Cranial nerves 3-12 intact, Normal affect Vital Signs/Physical Exam: Temp Pulse Resp BP Pulse Ox 98.4 F 72 16 112/62 94 09/08/22 16:00 09/08/22 16:00 09/08/22 16:00 09/08/22 16:00 09/08/22 16:00 Laboratory Data at Discharge: WBC 9.90 K/uL (4.3-10.9) 09/08/22 05:28 Hgb 13.9 g/dL (13.6-17.9) 09/08/22 05:28 Hct 40.0 % (39.6-49.0) 09/08/22 05:28 Plt Count 163 K/uL (152-406) 09/08/22 05:28 PT 11.5 SECONDS (9.5-12.5) 09/08/22 07:21 INR 1.05 09/08/22 07:21 Sodium 137 mmol/L (136-145) 09/08/22 05:28 Potassium 3.8 mmol/L (3.5-5.1) 09/08/22 05:28 BUN 18 mg/dL (7-18) 09/08/22 05:28 Creatinine 1.21 mg/dL (0.55-1.3) 09/08/22 05:28 Glucose 172 mg/dL (74-106) H 09/08/22 05:28 Phosphorus 3.2 mg/dL (2.5-4.9) 09/08/22 05:28 Magnesium 2.1 mg/dL (1.8-2.4) 09/08/22 05:28 Total Bilirubin 0.3 mg/dL (0.2-1.0) 09/07/22 06:58 AST 30 U/L (15-37) 09/07/22 06:58 ALT 72 U/L (12-78) 09/07/22 06:58 Alkaline Phosphatase 93 U/L (45-117) 09/07/22 06:58 Home Medications: Acetaminophen [Tylenol*] 650 mg PO Q6H PRN tab 09/08/22 Codeine/APAP [Tylenol W/Codeine #3 tab] 1 tab PO Q6HP PRN #12 tab 09/08/22 New Medications: Codeine/APAP [Tylenol W/Codeine #3 tab] 1 tab PO Q6HP PRN #12 tab PRN Reason: Pain Physician Discharge Instructions: Diet:Low sodium Activity:Ad savi PHYSICIAN'S DISCHARGE INSTRUCTIONS I was able to blast and remove the kidney stone that was causing your pain today. You do still have a ureteral stent in place in your right kidney. It may cause some discomfort when you urinate in the back, and it may make you feel like you need to urinate frequently or have the urge to pee. This is common with the stent. You may also see some blood in the urine. This is normal. Notify me via my office if you develop any fever, frequent nausea or vomiting, pain that is not controlled by pain medications, or other unusual signs or symp toms. I have sent a prescription for Tylenol with codeine, which is a gentle narcotic for your pain. If you do not require the narcotic medication, you may take plain Tylenol, up to 1000 mg every 6 hours maximum, and alternate this every 4 hours with Motrin/ibuprofen, up to 800 mg every 8 hours maximum. Please take care to keep the total 24-hour daily dose of Tylenol/acetaminophen less than 4000 mg / 4 g from all sources if you are mixing the narcotic with plain Tylenol. Contact my office at [phone] to schedule follow-up to have the stent removed in about 2 to 4 weeks time. All the best! WBR Diet: Low sodium Activity: Ad savi Followup: Angel Johnson [ACTIVE - CAN ADMIT] - Time spent managing pt's care (in minutes): 20
== END 2022-09-08 18:56 | disposition home or self-care (01) ==
LOC: ER 06:25 → ERHOLD 13:50 → 2ND 16:00
PROVIDERS: ADMIT Internal Medicine; ATTEND Internal Medicine
PROC: 0TF68ZZ Fragmentation in Right Ureter, Via Natural or Artificial Opening Endoscopic (ICD-10-PCS; principal; 2022-09-07)
PROC: 0T768DZ Dilation of Right Ureter with Intraluminal Device, Via Natural or Artificial Opening Endoscopic (ICD-10-PCS; 2022-09-07)
DX: N13.2 Hydronephrosis with renal and ureteral calculous obstruction (principal); R10.9 Unspecified abdominal pain; Z20.822 Contact with and (suspected) exposure to COVID-19
CPT/HCPCS: 52356; 96365; 96361; 85025 ×2; 80048; 36415; 83735; 84100; 85610; 88300; 81003; 80053; 82360; 76377; 74176; 74450; 51610; 96375; 99285; 87811; J2704; J2001; J2250; J3010; J3475; J2175; J2710; J7120; J7040; J2405; G0378 ×3

== ENCOUNTER 2022-09-11 07:21 | Emergency (ER) | payer OTHER ==
[2022-09-11 08:02] LABS: Absolute Lymphocytes (CBC) 3.3 K/uL (0.7-4.9); Lymphocytes % 43.6 % (15.3-44.8); MCV 86.5 fL (80-100); RBC Red Blood Cell Count 4.97 M/uL (4.33-5.43)
[2022-09-11 08:14] LABS: Potassium 3.8 mmol/L (3.5-5.1)
[2022-09-11 09:15] LABS: Urine Blood 3+ (Negative); Urine Glucose Trace (Negative); Urine Protein 1+ (Negative); Urine Specific Gravity 1.025 (1.005-1.030); Urine pH 6.5 (5.0-7.0)
--- NOTE | 2022-09-11 11:34 | RAD REPORT ---
EXAM DESCRIPTION: RAD - Abdomen 1 View (KUB) - 09/11/2022 8:52 am CLINICAL HISTORY: R CVA tenderness Pain COMPARISON: Stone Protocol dated 09/07/2022 FINDINGS: The bowel gas pattern is non-obstructive. No evidence of free air or pneumatosis. There ar e 2 calcifications projecting inferior calyx right kidney. Tiny calcification also suspected inferior calyx left kidney. Right-sided double-J stent is in place in expected position.
--- NOTE | 2022-09-11 14:11 | ER ---
Nurse's Notes [facility] Name: Durga Gastelum Age: 41 yrs Sex: Male : 1980 Arrival Date: 09/11/2022 Time: 07:22 Bed 8 Private MD: Diagnosis: Ureteral stent pain, hematuria, renal stones Presentation: 09/11 07:25 Chief complaint: Patient states: R flank pain when using restroom since yesterday. Pt ss was admitted on Wednesday for 9 mm kidney stone, but states he had surgery to remove it. Coronavirus screen: Client denies travel out of the [place] in the last 14 days. Ebola Screen: Patient denies exposure to infectious person. Patient denies travel to an Ebola-affected area in the 21 days before illness onset. Initial Sepsis Screen: Does the patient meet any 2 criteria? No. Patient's initial sepsis screen is negative. Does the patient have a suspected source of infection? No. Patient's initial sepsis screen is negative. Risk Assessment: Do you want to hurt yourself or someone else? Patient reports no desire to harm self or others. Onset of symptoms was September 10, 2022. 07:25 Method Of Arrival: Ambulatory ss 07:25 Acuity: JOVANNY 3 ss Historical: - Allergies: 07:38 No Known Allergies; ss - PMHx: 07:38 Kidney stone; ss - Immunization history:: Adult Immunizations up to date. - Social history:: Smoking status: Patient denies any tobacco usage or history of. Screenin:30 Abuse screen: Denies threats or abuse. Nutritional screening: No deficits noted. vg1 Tuberculosis screening: No symptoms or risk factors identified. Fall Risk No fall in past 12 months (0 pts). No secondary diagnosis (0 pts). IV access (20 points). Ambulatory Aid- None/Bed Rest/Nurse Assist (0 pts). Gait- Normal/Bed Rest/Wheelchair (0 pts) Mental Status- Oriented to own ability (0 pts). Total Patel Fall Scale indicates No Risk (0-24 pts). Assessment: 07:30 General: Appears in no apparent distress. uncomfortable, Behavior is calm, cooperative. vg1 Pain: Complains of pain in Right flank and groin Pain currently is 0 out of 10 on a pain scale. at worst was 8 out of 10 on a pain scale. Pain began 11. Neuro: Level of Consciousness is awake, alert, obeys commands, Oriented to person, place, time, situation. Cardiovascular: Patient's skin is warm and dry. Respiratory: Airway is patent Respiratory effort is even, unlabored. GI: Abdomen is round non-distended, Patient currently denies nausea, vomiting. : Reports pain in right flank(s), with urination. EENT: No signs and/or symptoms were reported regarding the EENT system. Derm: Skin is intact, Skin is pink, warm \T\ dry. Musculoskeletal: Circulation, motion, and sensation intact. 08:30 Reassessment: Patient appears in no apparent distress at this time. Patient and/or vg1 family updated on plan of care and expected duration. Pain level reassessed. Patient is alert, oriented x 3, equal unlabored respirations, skin warm/dry/pink. Rates right flank pain 2/. 09:30 Reassessment: Patient appears in no apparent distress at this time. No changes from vg1 previously documented assessment. Patient is alert, oriented x 3, equal unlabored respirations, skin warm/dry/pink. 11:07 Reassessment: Patient appears in no apparent distress at this time. No changes from jd3 previously documented assessment. Patient and/or family updated on plan of care and expected duration. Pain level reassessed. Patient is alert, oriented x 3, equal unlabored respirations, skin warm/dry/pink. 12:56 Reassessment: Patient appears in no apparent distress at this time. Patient and/or vg1 family updated on plan of care and expected duration. Pain level reassessed. Patient is alert, oriented x 3, equal unlabored respirations, skin warm/dry/pink. 12:59 Reassessment: Currently waiting for Dr Johnson to call Dr Latif back about pt status. vg1 Pt updated on plan of care. Vital Signs: 07:25 BP 143 / 92; Pulse 77; Resp 16; Temp 98.5(O); Pulse Ox 97% on R/A; Weight 81.65 kg; ss Height 5 ft. 5 in. (165.10 cm); Pain 0/10; 08:30 BP 132 / 88; Pulse 72; Resp 15; Pulse Ox 96% on R/A; vg1 09:30 BP 124 / 88; Pulse 66; Resp 15; Pulse Ox 97% on R/A; vg1 11:07 BP 125 / 89; Pulse 67; Resp 16; Pulse Ox 100% on R/A; jd3 11:30 BP 139 / 89; Pulse 73; Resp 16; Pulse Ox 97% on R/A; vg1 12:55 BP 126 / 85; Pulse 82; Resp 14; Pulse Ox 96% on R/A; vg1 07:25 Body Mass Index 29.95 (81.65 kg, 165.10 cm) ED Course: 07:22 Patient arrived in ED. am2 07:28 Barney Latif MD is Attending Physician. kdr 07:29 Margarette Rosales, RN is Primary Nurse. vg1 07:30 Patient has correct armband on for positive identification. Placed in gown. Bed in low vg1 position. Call light in reach. Side rails up X 1. 07:30 No provider procedures requiring assistance completed. vg1 07:38 Triage completed. 07:38 Arm band placed on right wrist. 07:43 Initial lab(s) drawn, by de, sent to lab. Inserted saline lock: 20 gauge in left vg1 antecubital area, using aseptic technique. Blood collected. 08:54 Abdomen 1 View (KUB) XRAY In Process Unspecified. EDMS 14:47 IV discontinued, intact, bleeding controlled, No redness/swelling at site. Pressure vg1 dressing applied. Administered Medications: 14:44 Drug: Ditropan (oxybutynin) 5 mg Route: PO; vg1 14:47 Follow up: Response: Medication administered at discharge. vg1 Medication: 07:30 VIS not applicable for this client. vg1 Outcome: 14:10 Discharge ordered by . kdr 14:47 Discharged to home ambulatory. vg1 14:47 Condition: good 14:47 Discharge instructions given to patient, Instructed on discharge instructions, follow up and referral plans. medication usage, Demonstrated understanding of instructions, follow-up care, medications, Prescriptions given X 3. 14:47 Patient left the ED. vg1 Signatures: Dispatcher [employer] EDMS Barney Latif MD MD kdr Shazia Lares RN RN Kari Velasquez am2 Woodson, Slade, RN RN jd3 Bobby, Margarette, RN RN vg1
--- NOTE | 2022-09-11 14:11 | EDPHYS ---
Physician Documentation [facility] Name: Durga Gastelum Age: 41 yrs Sex: Male : 1980 Arrival Date: 09/11/2022 Time: 07:22 Bed 8 Private MD: ED Physician Barney Latif HPI: 09/11 08:31 This 41 yrs old Male presents to ER via Ambulatory with complaints of Flank kdr Pain, Pain With Urination. 08:32 Patient was admitted here last week for a kidney stone, 9 mm, and subsequently kdr discharged. Patient continues to have discomfort in the same region as when he was admitted previously. When he has the pain is a 7-8 out of 10. Currently without urinating, he has 0 pain. When he urinates he has pain. He denies fever, chills or nausea and vomiting. Patient otherwise has no complaints. He is nontoxic-appearing. Onset: The symptoms/episode began/occurred last week. Severity of symptoms: At their worst the symptoms were mild moderate just prior to arrival, in the emergency department the symptoms have improved. The patient has experienced a previous episode. The patient has not recently seen a physician. Historical: - Allergies: 07:38 No Known Allergies; ss - PMHx: 07:38 Kidney stone; ss - Immunization history:: Adult Immunizations up to date. - Social history:: Smoking status: Patient denies any tobacco usage or history of. ROS: 19:27 Constitutional: Negative for fever, chills, and weight loss, Eyes: Negative for injury, kdr pain, redness, and discharge, Neck: Negative for injury, pain, and swelling, Cardiovascular: Negative for chest pain, palpitations, and edema, Respiratory: Negative for shortness of breath, cough, wheezing, and pleuritic chest pain, Back: Negative for injury and pain, : Negative for injury, bleeding, discharge, and swelling, MS/Extremity: Negative for injury and deformity, Skin: Negative for injury, rash, and discoloration, Neuro: Negative for headache, weakness, numbness, tingling, and seizure activity. Psych: Negative for depression, anxiety, suicide ideation, homicidal ideation, and hallucinations, Allergy/Immunology: Negative for hives, rash, and allergies, Endocrine: Negative for neck swelling, polydipsia, polyuria, polyphagia, and marked weight changes, Hematologic/Lymphatic: Negative for swollen nodes, abnormal bleeding, and unusual bruising. 19:27 Abdomen/GI: Positive for abdominal pain, Negative for nausea, vomiting. Exam: 19:28 Constitutional: This is a well developed, well nourished patient who is awake, alert, kdr and in no acute distress. Head/Face: Normocephalic, atraumatic. Eyes: Pupils equal round and reactive to light, extra-ocular motions intact. Lids and lashes normal. Conjunctiva and sclera are non-icteric and not injected. Cornea within normal limits. Periorbital areas with no swelling, redness, or edema. Neck: Trachea midline, no thyromegaly or masses palpated, and no cervical lymphadenopathy. Supple, full range of motion without nuchal rigidity, or vertebral point tenderness. No Meningismus. Chest/axilla: Normal chest wall appearance and motion. Nontender with no deformity. No lesions are appreciated. Cardiovascular: Regular rate and rhythm with a normal S1 and S2. No gallops, murmurs, or rubs. Normal PMI, no JVD. No pulse deficits. Respiratory: Lungs have equal breath sounds bilaterally, clear to auscultation and percussion. No rales, rhonchi or wheezes noted. No increased work of breathing, no retractions or nasal flaring. Abdomen/GI: Soft, non-tender, with normal bowel sounds. No distension or tympany. No guarding or rebound. No evidence of tenderness throughout. Back: No spinal tenderness. No costovertebral tenderness. Full range of motion. Skin: Warm, dry with normal turgor. Normal color with no rashes, no lesions, and no evidence of cellulitis. MS/ Extremity: Pulses equal, no cyanosis. Neurovascular intact. Full, normal range of motion. Neuro: Awake and alert, GCS 15, oriented to person, place, time, and situation. Cranial nerves II-XII grossly intact. Motor strength 5/5 in all extremities. Sensory grossly intact. Cerebellar exam normal. Normal gait. Psych: Awake, alert, with orientation to person, place and time. Behavior, mood, and affect are within normal limits. Vital Signs: 07:25 BP 143 / 92; Pulse 77; Resp 16; Temp 98.5(O); Pulse Ox 97% on R/A; Weight 81.65 kg; ss Height 5 ft. 5 in. (165.10 cm); Pain 0/10; 08:30 BP 132 / 88; Pulse 72; Resp 15; Pulse Ox 96% on R/A; vg1 09:30 BP 124 / 88; Pulse 66; Resp 15; Pulse Ox 97% on R/A; vg1 11:07 BP 125 / 89; Pulse 67; Resp 16; Pulse Ox 100% on R/A; jd3 11:30 BP 139 / 89; Pulse 73; Resp 16; Pulse Ox 97% on R/A; vg1 12:55 BP 126 / 85; Pulse 82; Resp 14; Pulse Ox 96% on R/A; vg1 07:25 Body Mass Index 29.95 (81.65 kg, 165.10 cm) ss MDM: 14:10 Patient medically screened. kdr 14:14 Data reviewed: vital signs. ED course: Patient was stable in the ED, patient is only kdr having pain with urination. Patient appears to be having typical ureteral stent pain. I discussed the case with Dr. Johnson (delay in disposition due to awaiting his recovery return call). He suggested Ditropan and Tylenol/Toradol for pain relief. Patient was otherwise stable in the ED and happy with the care provided the plan for discharge and follow-up. 19:28 ED course: Patient was feeling much better after the interventions given. He stated kdr that he really only was having discomfort with urination. After speaking with Dr. Johnson, he indicated that the patient need to follow-up with him to get the stent removed as soon as possible or as scheduled. 09/11 07:29 Order name: Urine Culture kdr 09/11 07:39 Order name: CBC with Diff; Complete Time: 09:16 kdr 09/11 07:39 Order name: Abdomen 1 View (KUB) XRAY; Complete Time: 11:45 kdr 09/11 07:39 Order name: Chem 7; Complete Time: 09:16 kdr 09/11 09:15 Order name: Urine Dipstick-Ancillary; Complete Time: 09:16 EDMS 09/11 07:29 Order name: Urine Dipstick-Ancillary (obtain specimen); Complete Time: 09:16 kdr Administered Medications: 14:44 Drug: Ditropan (oxybutynin) 5 mg Route: PO; vg1 14:47 Follow up: Response: Medication administered at discharge. vg1 Disposition Summary: 09/11/22 14:10 Discharge Ordered Location: Home kdr Problem: new kdr Symptoms: have improved kdr Condition: Stable kdr Diagnosis - Ureteral stent pain, hematuria, renal stones kdr Followup: kdr - With: Private Physician - When: 2 - 3 days - Reason: If symptoms return, Further diagnostic work-up, Recheck today's complaints, Continuance of care, Re-evaluation by your physician Discharge Instructions: - Discharge Summary Sheet kdr - Kidney Stones, [id number] kdr - Ureteral Stent Implantation, Care After kdr Forms: - Medication Reconciliation Form kdr - Thank You Letter kdr - Antibiotic Education kdr Prescriptions: - Ditropan XL 5 mg Oral tablet extended release 24hr - take 2 tablet by ORAL route once daily; 12 tablet; Refills: 0, Product kdr Selection Permitted - Tramadol 50 mg Oral Tablet - take 1 tablet by ORAL route every 8 hours as needed; 12 tablet; Refills: 0, kdr Product Selection Permitted - Bactrim DS 800-160 mg Oral Tablet - take 1 tablet by ORAL route every 12 hours for 3 days; 6 tablet; Refills: 0, kdr Product Selection Permitted Signatures: Dispatcher [employer] EDMS Barney Latif MD MD kdr Shazia Lares RN RN ss Garcia, Victoria, RN RN vg1 Corrections: (The following items were deleted from the chart) 19:30 19:27 Constitutional: Negative for fever, chills, and weight loss, Eyes: Negative for kdr injury, pain, redness, and discharge, Neck: Negative for injury, pain, and swelling, Cardiovascular: Negative for chest pain, palpitations, and edema, Respiratory: Negative for shortness of breath, cough, wheezing, and pleuritic chest pain, Back: Negative for injury and pain, : Negative for injury, bleeding, discharge, and swelling, MS/Extremity: Negative for injury and deformity, Skin: Negative for injury, rash, and discoloration, Neuro: Negative for headache, weakness, numbness, tingling, and seizure activity. Psych: Negative for depression, anxiety, suicide ideation, homicidal ideation, and hallucinations, Allergy/Immunology: Negative for hives, rash, and allergies, Endocrine: Negative for neck swelling, polydipsia, polyuria, polyphagia, and marked weight changes, Hematologic/Lymphatic: Negative for swollen nodes, abnormal bleeding, and unusual bruising, kdr
[2022-09-11 14:58] VITALS: TEMP 98.5
[2022-09-11] MEDS ORDERED: OXYBUTYNIN CHLORIDE 5 MG TAB PO ONE (15:00)
[2022-09-11 15:18] VITALS: BP 126/85; O2SAT 96
== END 2022-09-11 14:47 | disposition home or self-care (01) ==
LOC: ER 07:21
DX: N20.0 Calculus of kidney (principal); Z87.442 Personal history of urinary calculi; T83.192A Other mechanical complication of indwelling ureteral stent, initial encounter
CPT/HCPCS: 36415; 74018; 80048; 81003; 85025; 87086; 87088; 99284

== ENCOUNTER 2022-09-29 12:07 | Emergency (ER) | payer OTHER ==
--- OUTSIDE RECORDS SUMMARY | 2022-09-29 12:10 | XMS REPORT | Continuity of Care Document ---
:1980 Author Organization [facility] t Address [address] [place] [address] [address] [place] [address] Care Team Providers Name Role Phone Lab, [facility] Fam Pob I Attending Clinician Unavailable Maria Dolores Barrientos Attending Clinician MARIA DOLORES SAMS Attending Clinician Unavailable Doctor Unassigned, [place] Attending Clinician Unavailable Pcp, Patient Does Not Have A Attending Clinician [id number] [phone] Payers Payer Name Policy Type Policy Number Effective Date Expiration Date S ource Problems This patient has no known problems. Allergies, Adverse Reactions, Alerts Allergy Allergy Status Severity Reaction(s) Onset Inactive Treating Comm ents Source Name Type Date Date Clinician NO KNOWN Drug Active Univers ALLERGIE Class ity of S [facility] Social History Social Habit Start Date Stop Date Quantity Comments [facility] to [facility] Smoking Status Start Date Stop Date Source Unknown if ever smoked Universit y [facility] Medications This patient has no known medications. Procedures This patient has no known procedures. Encounters Start End Encounter Admission Attending Care Care Encounter Source Date/Time Date/Time Type Type Clinicians Facility Department ID 2020-05-19 2020-05-19 Laboratory Lab, [facility] Fam Pob I [facility] [id number] Univers 08:34:56 08:46:01 Only [id number] [id number] Mikey as Jasmine [phone] [place] [address] Office Building [address] 2020-05-19 2020-05-19 Outpatient R JOE SAMS [facility] [id number] Univers 08:45:00 08:45:00 MARIA DOLORES ramos of [facility] 2020-05-19 2020-05-19 Letter Doctor SHERIDAN [id number] Univers 00:00:00 00:00:00 (Out) Unassigned, MARCO A [id number] ity of [place] [facility] [id number] Mikey as [phone] [address] 2020-05-09 2020-05-09 Telephone Pcp, [facility] [id number] Univers 00:00:00 00:00:00 Patient Health [id number] it y of Does Not [place] [id number] [place] Professio [phone] [address] Office [address] 2020-05-07 2020-05-07 Laboratory Lab, Adc Fam Pob I [facility] [id number]. [id number] Univers 11:34:31 11:54:31 Only Maria Dolores Sams [id number] [place] [id number] Mikey as Professio [phone] [address] Office [address] 2020-05-07 2020-05-07 Outpatient R [facility] [id number] Univers 11:40:00 11:40:00 MARIA DOLORES ramos [facility] Results This patient has no known results.
[2022-09-29] MEDS ORDERED: MORPHINE 4 MG/ML SYR ONE (12:23)
[2022-09-29] MEDS ORDERED: ONDANSETRON 4 MG/2 ML VIAL ONE (12:23)
[2022-09-29] MEDS ORDERED: FAMOTIDINE 20 MG/2 ML VIAL IV ONE (12:23)
[2022-09-29] MEDS ORDERED: NA CHLORIDE 0.9% 1,000 ML ONE (12:23)
[2022-09-29 12:42] LABS: Urine Blood 2+ (Negative); Urine Glucose 1+ (Negative); Urine Protein Negative (Negative)
[2022-09-29 12:43] LABS: Absolute Lymphocytes (CBC) 2.2 K/uL (0.7-4.9); Hematocrit 42.1 % (39.6-49.0); Lymphocytes % 29.5 % (15.3-44.8); MCV 85.8 fL (80-100); MPV 9.2 fL (7.6-11.3); RBC Red Blood Cell Count 4.91 M/uL (4.33-5.43)
[2022-09-29 12:59] LABS: Albumin 3.8 g/dL (3.4-5.0); Bilirubin Total 0.2 mg/dL (0.2-1.0); Potassium 3.6 mmol/L (3.5-5.1); Protein, Total 7.4 g/dL (6.4-8.2)
--- NOTE | 2022-09-29 13:55 | RAD REPORT ---
EXAM DESCRIPTION: CTAbdomen Pelvis W Contrast - 09/29/2022 1:38 pm CLINICAL HISTORY: Abdominal pain. right flank pain COMPARISON: Stone Protocol dated 09/07/2022 TECHNIQUE: Biphasic CT imaging of the abdomen and pelvis was performed with 100 ml non-ionic IV cont rast. All CT scans are performed using dose optimization technique as appropriate and may include automated exposure control or mA/KV adjustment according to patient size. FINDINGS: The lung bases are clear. The liver demonstrates diffuse fatty infiltration. Spleen, pancreas, adrenal glands are within normal limits. Punctate calculus is noted left kidney without hydronephrosis. Right double-J stent is in place. The stent is spanning the right renal pelvis, right ureter and term inates in the right aspect of the urinary bladder. Small stone is present in the inferior aspect of t he right renal calyx measuring 5 mm. 3 mm calculus is seen along the course of the distal right urete r stent. There is mild fat stranding seen surrounding the right ureter and right renal pelvis. No bowel obstruction, free air, free fluid or abscess. Small fat containing umbilical hernia. The nga endix is normal. No evidence of significant lymphadenopathy. No suspicious bony findings. IMPRESSION: Right double-J stent is in place as detailed. There is fat stranding surrounding the olivia nt which could indicate urinary tract infection. Advise correlation with urinalysis. Small stone is present in right kidney. There is also a small 3 mm stone likely present along the dis shobha course of the right-sided stent.
[2022-09-29 14:33] LABS: Urine RBC <5 /HPF (None Seen)
[2022-09-29] MEDS ORDERED: MAGNESIUM SULFATE 1 gm IVPB 1 GM/100 ML BAG IV ONE (14:49)
[2022-09-29] MEDS ORDERED: TAMSULOSIN 0.4 MG SR CAP ONE (14:49)
--- NOTE | 2022-09-29 14:54 | EDPHYS ---
Physician Documentation [facility] Name: Durga Gastelum Age: 41 yrs Sex: Male : 1980 Arrival Date: 09/29/2022 Time: 12:10 Bed 14 Private MD: ED Physician Minesh Nicholas HPI: 09/29 12:18 This 41 yrs old Male presents to ER via Ambulatory with complaints of Back jmm Pain, Nausea. 12:18 The patient presents with pain that is acute. Onset: The symptoms/episode jmm began/occurred gradually, 3 day(s) ago. The pain radiates to the right lower quadrant. Associated signs and symptoms: Pertinent positives: nausea. This is a 41 year old male with a history of previous kidney stones that presents to the ED with complaints of right flank pain beginning approx 3 days ago with nausea. Denies fever, diarrhea. . Historical: - Allergies: 12:19 No Known Allergies; ld1 - Home Meds: 12:19 None [Active]; ld1 - PMHx: 12:19 Kidney stone; ld1 - PSHx: 12:19 None; ld1 - Immunization history:: Adult Immunizations up to date, Client reports receiving the 2nd dose of the Covid vaccine. - Social history:: Smoking status: Patient denies any tobacco usage or history of. Patient/guardian denies using alcohol. ROS: 12:18 Constitutional: Negative for fever, chills, and weight loss, Cardiovascular: Negative jmm for chest pain, palpitations, and edema, Respiratory: Negative for shortness of breath, cough, wheezing, and pleuritic chest pain. 12:18 Back: Positive for flank pain, on the right. 12:18 All other systems are negative. Exam: 12:18 Constitutional: This is a well developed, well nourished patient who is awake, alert, jmm and in no acute distress. Head/Face: atraumatic. Eyes: EOMI, no conjunctival erythema appreciated ENT: Moist Mucus Membranes Neck: Trachea midline, Supple Chest/axilla: Normal chest wall appearance and motion. Cardiovascular: Regular rate and rhythm. No edema appreciated Respiratory: Normal respirations, no respiratory distress appreciated 12:18 Skin: General appearance color normal MS/ Extremity: Moves all extremities, no obvious deformities appreciated, no edema noted to the lower extremities Neuro: Awake and alert Psych: Behavior is normal, Mood is normal, Patient is cooperative and pleasant 12:18 Abdomen/GI: Inspection: abdomen appears normal, Bowel sounds: normal, Palpation: soft, mild abdominal tenderness, in the right lower quadrant. 12:18 Back: CVA tenderness, that is moderate, is noted on the right. Vital Signs: 12:18 BP 150 / 87; Pulse 94; Resp 18; Temp 97.8(O); Pulse Ox 99% on R/A; Weight 81.65 kg; ld1 Height 5 ft. 5 in. (165.10 cm); Pain 5/10; 13:18 BP 137 / 81; Pulse 74; Resp 16; Pulse Ox 96% on R/A; tp1 14:15 BP 149 / 84; Pulse 97; Resp 16; Pulse Ox 100% on R/A; tp1 15:00 BP 144 / 85; Pulse 85; Resp 16; Pulse Ox 99% on R/A; tp1 16:09 BP 127 / 88; Pulse 74; Resp 16; Pulse Ox 100% on R/A; tp1 12:18 Body Mass Index 29.95 (81.65 kg, 165.10 cm) ld1 MDM: 12:18 Patient medically screened. [facility] 14:46 Data reviewed: vital signs, nurses notes. Counseling: I had a detailed discussion with ernie the patient and/or guardian regarding: the historical points, exam findings, and any diagnostic results supporting the discharge/admit diagnosis. 14:49 Counseling: I had a detailed discussion with the patient and/or guardian regarding: lab [facility] results, radiology results, the need for outpatient follow up, to return to the emergency department if symptoms worsen or persist or if there are any questions or concerns that arise at home. ED course: Pain alleviated in the ED. Patient able to tolerate PO. I discussed with the patient the need to follow up with urology for further evaluation. I discussed stent placement with need for removal. . 09/29 12:19 Order name: CBC with Diff; Complete Time: 12:51 [facility] 09/29 12:19 Order name: CMP; Complete Time: 13:02 [facility] 09/29 12:19 Order name: Lipase; Complete Time: 13:02 [facility] 09/29 12:42 Order name: Urine Dipstick-Ancillary; Complete Time: 12:42 [facility] 09/29 14:03 Order name: Urine Microscopic Only; Complete Time: 14:34 [facility] 09/29 14:03 Order name: Urine Culture [facility] 09/29 12:19 Order name: CT Abd/Pelvis - IV Contrast Only; Complete Time: 13:59 [facility] 09/29 12:19 Order name: IV Saline Lock; Complete Time: 12:46 [facility] 09/29 12:19 Order name: Labs collected and sent; Complete Time: 12:46 [facility] 09/29 12:19 Order name: Urine Dipstick-Ancillary (obtain specimen); Complete Time: 12:46 [facility] Administered Medications: 12:31 Drug: NS 0.9% 1000 ml Route: IV; Rate: 1 bolus; Site: right antecubital; tp1 14:38 Follow up: IV Status: Completed infusion; IV Intake: 1000ml tp1 12:32 Drug: Zofran (Ondansetron) 4 mg Route: IVP; Site: right antecubital; tp1 12:53 Follow up: Response: No adverse reaction tp1 12:34 Drug: morphine 4 mg Route: IVP; Infused Over: 4 mins; Site: right antecubital; tp1 12:53 Follow up: Response: Pain is decreased tp1 12:36 Drug: Pepcid (famotidine) 20 mg Route: IVP; Site: right antecubital; tp1 12:53 Follow up: Response: Pain is decreased tp1 15:02 Drug: Flomax (tamsulosin) 0.4 mg Route: PO; tp1 16:11 Follow up: Response: No adverse reaction tp1 15:02 Drug: Magnesium Sulfate 1 grams Route: IVPB; Infused Over: 1 hrs; Site: right tp1 antecubital; 16:11 Follow up: Response: No adverse reaction; IV Status: Completed infusion; IV Intake: tp1 100ml Disposition: 18:03 I agree with the assessment and plan of care. 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 I agree with assessment and care plan and confirm the diagnosis (es) above. Attestation: The patient's history, exam findings, diagnostics, and a summary of any interventions or procedures was reviewed in detail with Seth SMALL. Disposition Summary: 09/29/22 14:53 Discharge Ordered Location: Home [facility] Condition: Stable jmm Diagnosis - Calculus of ureter [facility] Followup: [facility] - With: Angel Johnson MD - When: 2 - 3 days - Reason: Recheck today's complaints, Continuance of care, Re-evaluation by your physician Discharge Instructions: - Discharge Summary Sheet [facility] - Kidney Stones [facility] - Dietary Guidelines to Help Prevent Kidney Stones [facility] Forms: - Medication Reconciliation Form [facility] - Thank You Letter [facility] - Antibiotic Education [facility] - Prescription Opioid Use [facility] Prescriptions: - ondansetron 4 mg Oral tablet,disintegrating - place 1 tablet by TRANSLINGUAL route every 4-6 hours As needed; 20 tablet; [facility] Refills: 0, Product Selection Permitted - Ultracet 37.5-325 mg Oral Tablet - take 1 tablet by ORAL route every 6 hours - for up to 5 days; do not exceed 8 jm tablets per day.; 30 tablet; Refills: 0, Product Selection Permitted - tamsulosin 0.4 mg Oral capsule - take 1 capsule by ORAL route once daily 1/2 hour following the same meal each [facility] day; 20 capsule; Refills: 0, Product Selection Permitted Signatures: Dispatcher [employer] EDMA Seth Chapa PA PA [facility] Brandie Hernandez RN RN ld1 Emerald Cho RN RN tp1 Minesh Nicholas MD MD [id number]
--- NOTE | 2022-09-29 14:54 | ER ---
Nurse's Notes [facility] Name: Durga Gastelum Age: 41 yrs Sex: Male : 1980 Arrival Date: 09/29/2022 Time: 12:10 Bed 14 Private MD: Diagnosis: Calculus of ureter Presentation: 09/29 12:18 Chief complaint: Patient states: Right flank pain \T\ RLQ pain since Wednesday. ld1 Coronavirus screen: At this time, the client does not indicate any symptoms associated with coronavirus-19. Ebola Screen: No symptoms or risks identified at this time. Initial Sepsis Screen: Does the patient meet any 2 criteria? No. Patient's initial sepsis screen is negative. Does the patient have a suspected source of infection? No. Patient's initial sepsis screen is negative. Risk Assessment: Do you want to hurt yourself or someone else? Patient reports no desire to harm self or others. Onset of symptoms was September 29, 2022. 12:18 Method Of Arrival: Ambulatory ld1 12:18 Acuity: JOVANNY 3 ld1 Triage Assessment: 12:19 General: Appears in no apparent distress. comfortable, Behavior is calm, cooperative, ld1 appropriate for age. Pain: Complains of pain in right low back and right lower quadrant Pain does not radiate. Pain currently is 5 out of 10 on a pain scale. EENT: No signs and/or symptoms were reported regarding the EENT system. Neuro: Level of Consciousness is awake, alert, obeys commands, Oriented to person, place, time, situation. Cardiovascular: Capillary refill < 3 seconds Patient's skin is warm and dry. Respiratory: Airway is patent Respiratory effort is even, unlabored. GI: Abdomen is flat, non-distended. : No signs and/or symptoms were reported regarding the genitourinary system. Derm: No signs and/or symptoms reported regarding the dermatologic system. Musculoskeletal: No signs and/or symptoms reported regarding the musculoskeletal system. Historical: - Allergies: 12:19 No Known Allergies; ld1 - Home Meds: 12:19 None [Active]; ld1 - PMHx: 12:19 Kidney stone; ld1 - PSHx: 12:19 None; ld1 - Immunization history:: Adult Immunizations up to date, Client reports receiving the 2nd dose of the Covid vaccine. - Social history:: Smoking status: Patient denies any tobacco usage or history of. Patient/guardian denies using alcohol. Screenin:47 Abuse screen: Denies threats or abuse. Denies injuries from another. Nutritional tp1 screening: No deficits noted. Tuberculosis screening: No symptoms or risk factors identified. Fall Risk None identified. Assessment: 12:30 General: Appears in no apparent distress. uncomfortable, Behavior is calm, cooperative. tp1 Pain: Complains of pain in right low back Pain radiates to right lower quadrant Pain currently is 5 out of 10 on a pain scale. Quality of pain is described as sharp. Neuro: Level of Consciousness is awake, alert, obeys commands, Oriented to person, place, time, situation. Cardiovascular: Capillary refill < 3 seconds in bilateral fingers Patient's skin is warm and dry. Respiratory: Airway is patent Respiratory effort is even, unlabored. GI: Abdomen is flat, non-distended, Patient currently denies diarrhea, nausea, vomiting. : Reports burning with urination, urinary frequency. EENT: No signs and/or symptoms were reported regarding the EENT system. Derm: Skin is pink, warm \T\ dry. Musculoskeletal: Circulation, motion, and sensation intact. 13:18 Reassessment: Patient appears in no apparent distress at this time. Patient and/or tp1 family updated on plan of care and expected duration. Pain level reassessed. Patient is alert, oriented x 3, equal unlabored respirations, skin warm/dry/pink. states pain has decreased. 14:12 Reassessment: Patient appears in no apparent distress at this time. No changes from tp1 previously documented assessment. Patient is alert, oriented x 3, equal unlabored respirations, skin warm/dry/pink. 15:02 Reassessment: discharge pending completion of Magnesium transfusion. tp1 Vital Signs: 12:18 BP 150 / 87; Pulse 94; Resp 18; Temp 97.8(O); Pulse Ox 99% on R/A; Weight 81.65 kg; ld1 Height 5 ft. 5 in. (165.10 cm); Pain 5/10; 13:18 BP 137 / 81; Pulse 74; Resp 16; Pulse Ox 96% on R/A; tp1 14:15 BP 149 / 84; Pulse 97; Resp 16; Pulse Ox 100% on R/A; tp1 15:00 BP 144 / 85; Pulse 85; Resp 16; Pulse Ox 99% on R/A; tp1 16:09 BP 127 / 88; Pulse 74; Resp 16; Pulse Ox 100% on R/A; tp1 12:18 Body Mass Index 29.95 (81.65 kg, 165.10 cm) ld1 ED Course: 12:10 Patient arrived in ED. mr 12:11 Seth Chapa PA is PHCP. jmm 12:11 Minesh Nicholas MD is Attending Physician. jmm 12:19 Triage completed. ld1 12:19 Arm band placed on right wrist. ld1 12:20 Emerald Cho, TARIK is Primary Nurse. tp1 12:30 Inserted saline lock: 20 gauge in right antecubital area, using aseptic technique. tp1 12:30 No provider procedures requiring assistance completed. tp1 12:47 Patient has correct armband on for positive identification. Bed in low position. Call tp1 light in reach. Adult w/ patient. library monitor on. Pulse ox on. 13:40 CT Abd/Pelvis - IV Contrast Only In Process Unspecified. EDMS 14:09 Urine Microscopic Only Sent. tp1 14:09 Urine Culture Sent. tp1 14:53 Angel Johnson MD is Referral Physician. m 16:10 IV discontinued, intact, bleeding controlled, No redness/swelling at site. Pressure tp1 dressing applied. Administered Medications: 12:31 Drug: NS 0.9% 1000 ml Route: IV; Rate: 1 bolus; Site: right antecubital; tp1 14:38 Follow up: IV Status: Completed infusion; IV Intake: 1000ml tp1 12:32 Drug: Zofran (Ondansetron) 4 mg Route: IVP; Site: right antecubital; tp1 12:53 Follow up: Response: No adverse reaction tp1 12:34 Drug: morphine 4 mg Route: IVP; Infused Over: 4 mins; Site: right antecubital; tp1 12:53 Follow up: Response: Pain is decreased tp1 12:36 Drug: Pepcid (famotidine) 20 mg Route: IVP; Site: right antecubital; tp1 12:53 Follow up: Response: Pain is decreased tp1 15:02 Drug: Flomax (tamsulosin) 0.4 mg Route: PO; tp1 16:11 Follow up: Response: No adverse reaction tp1 15:02 Drug: Magnesium Sulfate 1 grams Route: IVPB; Infused Over: 1 hrs; Site: right tp1 antecubital; 16:11 Follow up: Response: No adverse reaction; IV Status: Completed infusion; IV Intake: tp1 100ml Medication: 16:10 VIS not applicable for this client. tp1 Intake: 14:38 IV: 1000ml; Total: 1000ml. tp1 16:11 IV: 100ml; Total: 1100ml. tp1 Outcome: 14:53 Discharge ordered by . devyn 16:10 Discharged to home ambulatory. tp1 16:10 Condition: good 16:10 Discharge instructions given to patient, Instructed on discharge instructions, follow up and referral plans. medication usage, Demonstrated understanding of instructions, follow-up care, medications, Prescriptions given X 3. 16:10 Patient left the ED. tp1 Signatures: Dispatcher [employer] EDMS Seth Chapa PA PA jmm Rivera, Mary mr Brandie Hernandez RN RN ld1 Emerald Cho RN RN tp1
[2022-09-29 16:15] VITALS: TEMP 97.8
[2022-09-29 16:19] VITALS: BP 127/88; O2SAT 100
== END 2022-09-29 16:10 | disposition home or self-care (01) ==
LOC: ER 12:07
DX: N20.1 Calculus of ureter (principal); Z87.442 Personal history of urinary calculi
CPT/HCPCS: 87088; 85025; 87086; 36415; 83690; 80053; 74177; Q9967; J3475; J7030; J2405; 81003; 81015; 96361; 96365; 96375; 99284